=== PATIENT | female | born 1975 | race Caucasian/White ===

== ENCOUNTER 2017-11-30 12:51 | Outpatient (CLI) | payer BC | END 2017-11-30 12:52 | disposition home or self-care (01) | LOC: BICMAMMO 12:51 | PROVIDERS: ATTEND Obstetrics & Gynecology | DX: Z12.31 Encounter for screening mammogram for malignant neoplasm of breast (principal) | CPT/HCPCS: 77063; 77067 ==

== ENCOUNTER 2019-04-04 13:26 | Outpatient (CLI) | payer BC ==
--- NOTE | 2019-04-04 15:15 | MMO ---
Bilateral MAMMO Bilat Screen [facility]. CLINICAL HISTORY: Patient is 43 years old and is seen for screening. The patient has no family history of breast cancer. The patient has no personal history of cancer. VIEWS: The views performed were: bilateral craniocaudal with tomosynthesis and bilateral mediolateral oblique with tomosynthesis. FILMS COMPARED: The present examination has been compared to a prior imaging study performed at [facility] on 11/30/2017. MAMMOGRAM FINDINGS: There are scattered fibroglandular densities. There are no suspicious masses, suspicious calcifications, or new areas of architectural distortion. IMPRESSION: THERE IS NO MAMMOGRAPHIC EVIDENCE OF MALIGNANCY. A ROUTINE FOLLOW-UP MAMMOGRAM IN 1 YEAR IS RECOMMENDED. THE RESULTS OF THIS EXAM WERE SENT TO THE PATIENT. ACR BI-RADS Category 1 - Negative MAMMOGRAPHY NOTE: 1. A negative mammogram report should not delay a biopsy if a dominant of clinically suspicious mass is present. 2. Approximately 10% to 15% of breast cancers are not detected by mammography. 3. Adenosis and dense breasts may obscure an underlying neoplasm.
== END 2019-04-04 13:27 | disposition home or self-care (01) ==
LOC: BICMAMMO 13:26
PROVIDERS: ATTEND Obstetrics & Gynecology
DX: Z12.31 Encounter for screening mammogram for malignant neoplasm of breast (principal)
CPT/HCPCS: 77063; 77067

== ENCOUNTER 2019-07-22 13:39 | Outpatient (CLI) | payer BC ==
--- NOTE | 2019-07-22 14:21 | MRI ---
MRI Lumbar Spine WO Con HISTORY: Low back pain radiating down left leg. COMPARISON: None. FINDINGS: The vertebral bodies are normal in height disc spaces appear well preserved. There is no si gnificant periaortic adenopathy and the visualized portions of the kidneys appear normal. T12-L1: Unremarkable. L1-2: Unremarkable. L2-3: Unremarkable. L3-4: Minimal facet hypertrophic changes. No canal or foraminal stenosis. L4-5: A minimal disc bulge is seen at this level and a small left lateral annular disc tear, no aidan inal stenosis. Mild facet hypertrophic changes. L5-S1: Degenerative facet changes without canal or foraminal narrowing. IMPRESSION: Small left lateral annular disc tear at L4-5
== END 2019-07-22 13:40 | disposition home or self-care (01) ==
LOC: MRI 13:39
PROVIDERS: ATTEND Family Medicine
DX: Q78.2 Osteopetrosis (principal); G89.29 Other chronic pain; M54.41 Lumbago with sciatica, right side; S31.010A Laceration without foreign body of lower back and pelvis without penetration into retroperitoneum, initial encounter
CPT/HCPCS: 72148

== ENCOUNTER 2021-02-01 12:26 | Outpatient (CLI) | payer BC | END 2021-02-01 12:27 | disposition home or self-care (01) | LOC: BICULT 12:26 | PROVIDERS: ATTEND Physician Assistant | DX: R22.1 Localized swelling, mass and lump, neck (principal) | CPT/HCPCS: 76536 ==

== ENCOUNTER 2021-10-21 10:51 | Outpatient (CLI) | payer BC | END 2021-10-21 10:52 | disposition home or self-care (01) | LOC: BICMAMMO 10:51 | PROVIDERS: ATTEND Family Medicine | DX: Z12.31 Encounter for screening mammogram for malignant neoplasm of breast (principal) | CPT/HCPCS: 77063; 77067 ==

== ENCOUNTER 2023-08-03 12:25 | Outpatient (CLI) | payer BC | END 2023-08-03 12:26 | disposition home or self-care (01) | LOC: SCSCT 12:25 | PROVIDERS: ATTEND Neurological Surgery | DX: M47.22 Other spondylosis with radiculopathy, cervical region (principal); M54.50 Low back pain, unspecified; M48.061 Spinal stenosis, lumbar region without neurogenic claudication; M48.02 Spinal stenosis, cervical region; Z98.1 Arthrodesis status | CPT/HCPCS: 72100; 72131; 72141 ==

== ENCOUNTER 2023-10-19 08:22 | Outpatient (CLI) | payer BC | END 2023-10-19 08:23 | disposition home or self-care (01) | LOC: BICMAMMO 08:22 | PROVIDERS: ATTEND Family Medicine | DX: Z12.31 Encounter for screening mammogram for malignant neoplasm of breast (principal) | CPT/HCPCS: 77063; 77067 ==

== ENCOUNTER 2024-06-04 08:08 | Day surgery (SDC) | payer BC ==
[2024-06-03 15:37] VITALS: BMI 20.5
[2024-06-04] MEDS ORDERED: PROPOFOL 20 ML ONE ×2 (08:32→09:14)
[2024-06-04] MEDS ORDERED: Lidocaine 1% PF 5 ML VIAL ONE (08:33)
[2024-06-04] MEDS ORDERED: Rocuronium Bromide 10 MG/ML (10ML VIAL) ONE (08:33)
[2024-06-04] MEDS ORDERED: Iopamidol 30 ML ONE (08:47)
[2024-06-04] MEDS ORDERED: Bupivacaine 0.25% HCL 30 ML VIAL ONE (08:47)
[2024-06-04] MEDS ORDERED: EPINEPHrine 1 MG/ML VIAL ONE (08:47)
[2024-06-04] MEDS ORDERED: Indocyanine Green 25 MG/10 ML VIAL ONE (08:47)
[2024-06-04] MEDS ORDERED: fentaNYL PF 100 MCG/2 ML SYRINGE ONE ×3 (09:14→11:14)
[2024-06-04] MEDS ORDERED: Sodium Chloride 0.9% 100 ML ONE (09:25)
[2024-06-04] MEDS ORDERED: cefOXitin 2 GM VIAL ONE (09:25)
[2024-06-04] MEDS ORDERED: Dexamethasone 4 mg/ml Vial ONE (09:45)
[2024-06-04] MEDS ORDERED: PHENYLEPHRINE-NS 100 MCG/ML 10 ML SYRINGE ONE (09:52)
[2024-06-04] MEDS ORDERED: Ketorolac Tromethamine 30 MG (1 mL) VIAL ONE (10:34)
[2024-06-04] MEDS ORDERED: Ondansetron PF 4 MG/2 ML Vial ONE (10:34)
[2024-06-04] MEDS ORDERED: SUGAMMADEX SODIUM 200 MG/2 ML VIAL ONE (10:37)
== END 2024-06-04 12:28 | disposition home or self-care (01) ==
LOC: SDC 08:08
PROVIDERS: ATTEND Surgery
PROC: BF03YZZ Plain Radiography of Gallbladder and Bile Ducts using Other Contrast (ICD-10-PCS; principal; 2024-06-04)
PROC: 0FT44ZZ Resection of Gallbladder, Percutaneous Endoscopic Approach (ICD-10-PCS; principal; 2024-06-04)
DX: K80.10 Calculus of gallbladder with chronic cholecystitis without obstruction (principal); I10 Essential (primary) hypertension; K57.30 Diverticulosis of large intestine without perforation or abscess without bleeding; F32.A Depression, unspecified; Z79.899 Other long term (current) drug therapy; Z90.89 Acquired absence of other organs; Z88.8 Allergy status to other drugs, medicaments and biological substances; F17.210 Nicotine dependence, cigarettes, uncomplicated
CPT/HCPCS: 47532; 88304; C1889; J0171; J0665; J0694; J1100; J1885; J2405; J2704; Q9967